=== PATIENT | female | born 1975 | race Caucasian/White ===

== ENCOUNTER 2021-11-17 09:58 | Emergency (ER) | payer OTHER ==
[~2021-11-17] VITALS: Ht 165.1 cm; Wt 62.0 kg
[2021-11-17] MEDS ORDERED: LEVETIRACETAM 500MG TABLET PO ONE (10:30)
[2021-11-17 11:08] LABS: CLARITY URINE CLOUDY (CLEAR); COLOR URINE YELLOW (YELLOW); KETONES URINE NEGATIVE (NEGATIVE); LEUKOCYTE ESTERASE URINE 1+ (NEGATIVE); NITRITE URINE POSITIVE (NEGATIVE); OCCULT BLOOD URINE TRACE (NEGATIVE); PH URINE 6.5 (4.5-8.0); PROTEIN URINE NEGATIVE (NEGATIVE); SPECIFIC GRAVITY URINE 1.011 (1.005-1.030); UROBILINOGEN URINE 0.2 E.U./dL (0.2-1.0)
[2021-11-17 11:19] LABS: BASOPHILS % 0.4 % (0.0-2.0); EOSINOPHILS % 1.4 % (0.0-5.0); HEMATOCRIT. 43.4 % (36.0-48.0); HEMOGLOBIN. 14.4 g/dL (12.0-16.0); LYMPHOCYTES % 31.7 % (20.0-50.0); MEAN CORPUSCULAR HEMOGLOBIN 28.9 pg (28.0-32.0); MEAN CORPUSCULAR VOLUME 86.9 fL (81.0-99.0); MEAN PLATELET VOLUME 8.6 fl (7.4-10.4); MONOCYTES % 5.9 % (2.0-8.0); NEUTROPHILS % 60.6 % (40.0-76.0); PLATELET 367 x1000/uL (130-400); RED BLOOD CELL COUNT 4.99 mill/uL (4.2-5.4); RED CELL DISTRIBUTION WIDTH 13.9 % (11.6-14.6)
[2021-11-17 11:23] LABS: CHLORIDE 107 mEq/L (98-107)
[2021-11-17 11:31] LABS: *AMPHETAMINES SCREEN URINE NEGATIVE (NEGATIVE); *BARBITURATES SCREEN URINE NEGATIVE (NEGATIVE); *BENZODIAZEPINES SCREEN URINE NEGATIVE (NEGATIVE); *COCAINE SCREEN URINE NEGATIVE (NEGATIVE); CANNABINOID URINE SCREEN NEGATIVE (NEGATIVE); METHADONE URINE SCREEN NEGATIVE (NEGATIVE); OPIATES URINE SCREEN NEGATIVE (NEGATIVE); PHENCYCLIDINE URINE SCREEN NEGATIVE (NEGATIVE)
[2021-11-17 11:35] LABS: ETHANOL BLOOD < 10 mg/dL
[2021-11-17 11:36] LABS: HCG SCREEN NEGATIVE
[2021-11-17] MEDS ORDERED: OLAN2.5T3 MT (12:12)
[2021-11-17] MEDS ORDERED: LEVE1000 MT (12:12)
[2021-11-17] MEDS ORDERED: CEPH500C2 MT (12:12)
[2021-11-17] MEDS ORDERED: GABA300C MT (12:12)
[2021-11-17 13:02] VITALS: BP 110/72
[2021-11-17] MEDS ORDERED: LORAZEPAM 0.5MG TABLET PO ONE (13:15)
[2021-11-17] MEDS ORDERED: GABAPENTIN 300MG CAPSULE PO ONE (14:15)
[2021-11-17] MEDS ORDERED: OLANZAPINE 5MG TABLET PO SCH (14:15)
[2021-11-17] MEDS ORDERED: CEPHALEXIN 250MG CAPSULE PO SCH (17:00)
== END 2021-11-17 15:03 | disposition home or self-care (01) ==
LOC: ER 10:12
DX: R56.9 Unspecified convulsions (principal); N30.00 Acute cystitis without hematuria; F20.9 Schizophrenia, unspecified
CPT/HCPCS: 36415; 80053; 80305; 80307; 80320; 80329; 81003; 84703; 85025; 99284; G0480

== ENCOUNTER 2021-11-17 15:59 | Emergency (ER) | payer OTHER ==
[~2021-11-17] VITALS: Ht 167.6 cm; Wt 64.0 kg
[~2021-11-17 15:59] MED LIST: CEPH500C2 MT; GABA300C MT; LEVE1000 MT; OLAN2.5T3 MT
[2021-11-17 16:52] VITALS: BP 112/63
[2021-11-17] MEDS ORDERED: LORAZEPAM 2MG/ML CPJ IM ONE (17:15)
== END 2021-11-17 17:14 | disposition home or self-care (01) ==
LOC: ER 15:59
DX: R45.5 Hostility (principal); F20.9 Schizophrenia, unspecified; F12.10 Cannabis abuse, uncomplicated; F15.10 Other stimulant abuse, uncomplicated
CPT/HCPCS: 99283